=== PATIENT | male | born 1960 | race Caucasian/White ===

== ENCOUNTER 2019-09-17 19:48 | Inpatient (IN) | payer OTHER ==
[~2019-09-17] VITALS: Ht 175.3 cm; Wt 63.5 kg
[~2019-09-17 19:48] MED LIST: AMOCLA875 PO; Amoxicillin500 MG PO
[2019-09-17 20:29] LABS: BASOPHILS ABSOLUTE AUTO 0.04 K/mm3 (0.00-0.23); BASOPHILS PERCENT AUTO 0 % (0-2); EOSINOPHILS ABSOLUTE AUTO 0.01 K/mm3 (0.00-0.68); EOSINOPHILS PERCENT AUTO 0 % (0-6); Hematocrit 49.1 % (37.0-53.0); Hemoglobin 16.3 g/dL (13.5-17.5); IMMATURE GRAN ABSOLUTE AUTO 0.05 K/mm3 (0.00-0.10); IMMATURE GRAN PERCENT AUTO 0 % (0-1); LYMPHOCYTES ABSOLUTE AUTO 1.07 K/mm3 (0.84-5.20); LYMPHOCYTES PERCENT AUTO 6 % (21-46); MONOCYTES ABSOLUTE AUTO 0.32 K/mm3 (0.16-1.47); MONOCYTES PERCENT AUTO 2 % (4-13); Mean Corpuscular HGB Conc 33.2 g/dL (31.5-36.5); Mean Corpuscular Volume 90 fL (80-100); Mean Platelet Volume 8.4 fL (9.1-12.4); NEUTROPHILS ABSOLUTE AUTO 16.04 K/mm3 (1.96-9.15); NEUTROPHILS PERCENT AUTO 92 % (41-73); Platelet Count 605 K/mm3 (150-400); RDW Coefficient Variation 13.1 % (11.7-14.2); RDW Standard Deviation 43.8 fL (35.1-46.3); Red Blood Cell Count 5.44 M/mm3 (4.30-5.90); White Blood Cell Count 17.53 K/mm3 (4.00-11.30)
[2019-09-17 20:46] LABS: Alanine Aminotransfer (ALT/SGP 36 U/L (12-78); Alk Phos 67 U/L (50-136); Anion Gap 7 mmol/L (6-16); Aspartate Aminotrans (AST/SGOT 29 U/L (12-37); Bilirubin, Total 0.5 mg/dL (0.1-1.0); Blood Urea Nitrogen 23 mg/dL (8-24); Bun/Creatinine Ratio 24.8 (12.0-20.0); CO2, Blood 29 mmol/L (21-32); Calcium, Blood 9.1 mg/dL (8.5-10.1); Chloride, Blood 102 mmol/L (98-108); Creatinine, Blood 0.93 mg/dL (0.60-1.20); Globulin, Blood 4.1 g/dL (2.2-4.0); Glomerular Filtration Rate >60 (60-); Glucose, Blood 120 mg/dL (70-99); Potassium, Blood 3.6 mmol/L (3.5-5.5); Sodium, Blood 138 mmol/L (136-145); Total Protein, Blood 8.1 g/dL (6.4-8.2)
--- NOTE | 2019-09-18 02:02 | NUR ---
PT ARRIVES FROM OR VIA GURNEY TO ICU ROOM 9. PT FULLY AWAKE AND RESTLESS. LS CLEAR ON NON-REBREATHER MASK SWITCED TO N/C 2L. SATS 98-100%. PT MEDICATED WTIH FENTANYL 50 mcg PER ANESTHESIA ORDERS. PT STATED, "YES, A LITTLE BETTER" FOR PAIN RELIEF. PT WITH ABDOMINAL DRESSING AND HAN DRAIN TO MID ABDOMEN. PT CURRENTLY A+O TO PERSON, PLACE, MONTH, AND DAY OF THE WEEK. PT STATED NAUSEA BETTER AND PAIN IS NOW 5/10. WILL CALL SURGICAL FLOOR RN FOR PT TRANSFERRING TO ROOM 226.
--- NOTE | 2019-09-18 02:41 | NUR ---
DR. GUNN NOTIFIED: RE: PT'S HTN. DR. GUNN STATED WILL PLACE ORDER FOR SYS >180. HAN DRAIN C/ TOTAL OF 150cc SER/NIELSEN FLUID OUT.
[2019-09-18 02:43] LABS: BASOPHILS ABSOLUTE AUTO 0.02 K/mm3 (0.00-0.23); BASOPHILS PERCENT AUTO 0 % (0-2); EOSINOPHILS PERCENT AUTO 0 % (0-6); Hematocrit 44.1 % (37.0-53.0); Hemoglobin 14.6 g/dL (13.5-17.5); IMMATURE GRAN ABSOLUTE AUTO 0.05 K/mm3 (0.00-0.10); IMMATURE GRAN PERCENT AUTO 0 % (0-1); LYMPHOCYTES ABSOLUTE AUTO 0.35 K/mm3 (0.84-5.20); LYMPHOCYTES PERCENT AUTO 2 % (21-46); MONOCYTES ABSOLUTE AUTO 0.36 K/mm3 (0.16-1.47); MONOCYTES PERCENT AUTO 2 % (4-13); Mean Corpuscular HGB 30.4 pg (26.0-34.0); Mean Corpuscular HGB Conc 33.1 g/dL (31.5-36.5); Mean Corpuscular Volume 92 fL (80-100); Mean Platelet Volume 8.4 fL (9.1-12.4); NEUTROPHILS ABSOLUTE AUTO 19.08 K/mm3 (1.96-9.15); NEUTROPHILS PERCENT AUTO 96 % (41-73); Platelet Count 510 K/mm3 (150-400); RDW Coefficient Variation 13.2 % (11.7-14.2); RDW Standard Deviation 44.8 fL (35.1-46.3); White Blood Cell Count 19.86 K/mm3 (4.00-11.30)
[2019-09-18 02:58] LABS: Anion Gap 5 mmol/L (6-16); Blood Urea Nitrogen 25 mg/dL (8-24); Bun/Creatinine Ratio 25.1 (12.0-20.0); CO2, Blood 26 mmol/L (21-32); Chloride, Blood 107 mmol/L (98-108); Glomerular Filtration Rate >60 (60-); Glucose, Blood 143 mg/dL (70-99); Potassium, Blood 3.8 mmol/L (3.5-5.5); Sodium, Blood 138 mmol/L (136-145)
--- NOTE | 2019-09-18 07:44 | NUR ---
SUMMARY PT ADMITTED POSTOP FROM ICU RECOVERY. REQUIRED DILAUDID TOTAL OF 2 MG IV FOR PAIN CONTROL. PT SLEPT AFTER.BARBOSA WITH CLEAR YELLOW SURGICAL SITE D/I WITH GÉNESIS AND GAUZE WITH HAN.
--- NOTE | 2019-09-18 16:46 | NUR ---
SHIFT SUMMARY PAIN HAS BEEN MANAGED WITH IV PAIN MEDICATION. PT HAS BEEN OOB TO THE CHAIR X1 TODAY, TOLERATED WELL. PT DENIES PASSING FLATUS. VSS. WILL MONITOR UNTIL REPORT TO ONCOMING RN.
[2019-09-19 06:24] LABS: BASOPHILS ABSOLUTE AUTO 0.03 K/mm3 (0.00-0.23); BASOPHILS PERCENT AUTO 0 % (0-2); EOSINOPHILS ABSOLUTE AUTO 0.03 K/mm3 (0.00-0.68); EOSINOPHILS PERCENT AUTO 0 % (0-6); Hematocrit 37.7 % (37.0-53.0); Hemoglobin 12.5 g/dL (13.5-17.5); IMMATURE GRAN ABSOLUTE AUTO 0.07 K/mm3 (0.00-0.10); IMMATURE GRAN PERCENT AUTO 1 % (0-1); LYMPHOCYTES ABSOLUTE AUTO 1.17 K/mm3 (0.84-5.20); LYMPHOCYTES PERCENT AUTO 8 % (21-46); MONOCYTES ABSOLUTE AUTO 0.58 K/mm3 (0.16-1.47); MONOCYTES PERCENT AUTO 4 % (4-13); Mean Corpuscular HGB 29.7 pg (26.0-34.0); Mean Corpuscular HGB Conc 33.2 g/dL (31.5-36.5); Mean Corpuscular Volume 90 fL (80-100); Mean Platelet Volume 8.8 fL (9.1-12.4); NEUTROPHILS ABSOLUTE AUTO 12.45 K/mm3 (1.96-9.15); NEUTROPHILS PERCENT AUTO 87 % (41-73); Platelet Count 403 K/mm3 (150-400); RDW Coefficient Variation 13.3 % (11.7-14.2); RDW Standard Deviation 43.6 fL (35.1-46.3); Red Blood Cell Count 4.21 M/mm3 (4.30-5.90); White Blood Cell Count 14.33 K/mm3 (4.00-11.30)
--- NOTE | 2019-09-19 06:32 | NUR ---
POD 1 S/P EXP LAP W/ULCER OVERSEW. PT VSS T/O NIGHT. DRESSING CDI W/GOOD SEAL. HAN PUTTING OUT SS DRNG. PAIN MGD PER EMAR W/REP RELIEF. PT NPO PER ORDERS, BT HYPO, NO FLATUS YET. PT HAD NO C/O N/V. PPN AND ABX CONT PER ORDERS. PT USING CALL LIGHT FOR ASSISTANCE, WILL CONT TO MONITOR UNTIL REP GIVEN TO ONCOMING RN.
[2019-09-19 06:47] LABS: Alanine Aminotransfer (ALT/SGP 37 U/L (12-78); Albumin, Blood 2.5 g/dL (3.4-5.0); Alk Phos 40 U/L (50-136); Anion Gap 3 mmol/L (6-16); Aspartate Aminotrans (AST/SGOT 28 U/L (12-37); Bilirubin, Total 0.6 mg/dL (0.1-1.0); Blood Urea Nitrogen 23 mg/dL (8-24); Bun/Creatinine Ratio 31.5 (12.0-20.0); CO2, Blood 32 mmol/L (21-32); Calcium, Blood 8.4 mg/dL (8.5-10.1); Chloride, Blood 103 mmol/L (98-108); Creatinine, Blood 0.73 mg/dL (0.60-1.20); Glomerular Filtration Rate >60 (60-); Glucose, Blood 89 mg/dL (70-99); Phosphorus, Blood 1.5 mg/dL (2.5-4.9); Sodium, Blood 138 mmol/L (136-145)
[2019-09-19 06:49] LABS: Albumin/Globulin Ratio 0.7 (0.8-1.8); Globulin, Blood 3.5 g/dL (2.2-4.0)
--- NOTE | 2019-09-19 10:52 | NUR ---
ASSUMED CARE ASSUMED CARE FROM ORLIN BRAND AT THIS TIME
--- NOTE | 2019-09-19 19:45 | NUR ---
SHIFT SUMMARY POD 1 EXP LAP W/ULCER OVERSEW. PT A&O THROUGHOUT SHIFT WITH VSS AND NO ACUTE CHANGES. DRESSING C/D/I. HAN IN PLACE AND DRAINING SS FLUID. PAIN MANAGED WITH IV MEDICATIONS PER EMAR AND REPOSITIONING. BARBOSA REMOVED AND PT ABLE TO VOID. AMBULATED IN HALLWAY, UP IN CHAIR AND ON SIDE OF BED WITH ONE ASSIST. PPN AND ABX CONTINUED PER ORDERS. CALL LIGHT WITHIN REACH AND PT IS ABLE TO USE APPRIOPRIATELY.
[2019-09-20 05:37] LABS: Magnesium, Blood 1.8 mg/dL (1.6-2.4)
[2019-09-20 05:38] LABS: Anion Gap 4 mmol/L (6-16); Blood Urea Nitrogen 17 mg/dL (8-24); Bun/Creatinine Ratio 23.1 (12.0-20.0); CO2, Blood 32 mmol/L (21-32); Calcium, Blood 8.5 mg/dL (8.5-10.1); Chloride, Blood 97 mmol/L (98-108); Creatinine, Blood 0.74 mg/dL (0.60-1.20); Glomerular Filtration Rate >60 (60-); Glucose, Blood 83 mg/dL (70-99); Phosphorus, Blood 2.6 mg/dL (2.5-4.9); Sodium, Blood 133 mmol/L (136-145); Triglycerides 68 mg/dL (30-160)
--- NOTE | 2019-09-20 06:05 | NUR ---
POD 2 S/P EXP LAP W/ULCER REPAIR. PT VSS T/O NIGHT; DRESSING CDI W/GOOD SEAL TO GÉNESIS VAC. HAN PUTTING OUT SS DRNG. PAIN MGD W/1MG IV DILAUDID W/REP RELIEF. PT REMI SM AMT CLEAR LIQ, NO C/O N/V, REP NO FLATUS YET. PT VOIDING URINE W/O DIFFICULTY. PPN AND ABX CONT PER ORDERS. PT USING CALL LIGHT FOR ASSISTANCE, WILL CONT TO MONITOR UNTIL REP GIVEN TO ONCOMING RN.
--- NOTE | 2019-09-20 16:57 | NUR ---
SHIFT SUMMARY NO ACUTE CHANGES THIS SHIFT. PT RECEIVING 1MG IV DILAUDID FOR PAIN PRN. GÉNESIS WOUND VAC TO ABD REMAINS COMPRESSED AND CDI. HAN WITH 80CC OUT OF SANGUINOUS. PT DENIES PASSING GAS YET AND BTS ARE HYPOACTIVE BUT PRESENT. PT SLOWLY REMI CLEAR LIQ DIET. PPN STILL INFUSING PER ORDERS. USING URINAL TO VOID. ENCOURAGING AMBULATION. 1 SBA WHEN OOB. CALL LIGHT WITHIN REACH.
[2019-09-21 03:36] LABS: Anion Gap 6 mmol/L (6-16); Blood Urea Nitrogen 14 mg/dL (8-24); Bun/Creatinine Ratio 22.6 (12.0-20.0); CO2, Blood 29 mmol/L (21-32); Calcium, Blood 8.5 mg/dL (8.5-10.1); Chloride, Blood 99 mmol/L (98-108); Creatinine, Blood 0.62 mg/dL (0.60-1.20); Glomerular Filtration Rate >60 (60-); Glucose, Blood 110 mg/dL (70-99); Magnesium, Blood 1.9 mg/dL (1.6-2.4); Phosphorus, Blood 3.2 mg/dL (2.5-4.9); Potassium, Blood 3.5 mmol/L (3.5-5.5); Sodium, Blood 134 mmol/L (136-145)
--- NOTE | 2019-09-21 05:38 | NUR ---
SHIFT SUMMARY POD#3 DUODENAL ULCER REPAIR. PT RESTED WELL T/O NIGHT. AAOX4. DISCOMFORT CONTROLLED WITH 1MG IV DILAUDID Q2-3P. NO NAUSEA/EMESIS T/O NIGHT. ABD INCISION WITH GÉNESIS DRESSING C/D/I. HAN SECURE WITH 45cc SS DRAINAGE OUT. PPN INFUSING PER ORDERS. ELEVATED TEMPERATURE NOTED, ENCOURAGED PT TO DEEP BREATHE + INCENTIVE SPIROMETRY. PT RESTING WELL AT THIS TIME, NADN, WITH CALL LIGHT IN REACH.
--- NOTE | 2019-09-21 16:32 | NUR ---
SHIFT SUMMARY PT HAS STRUGGLED WITH NAUSEA TODAY. MEDICATING WITH ZOFRAN AND REGLAN. NO EMESIS. PT DENIES PASSING FLATUS. BTS X4 QUAD ARE HYPOACTIVE BUT PRESENT. VERY SLOW SIPS OF CLEAR LIQS. AMBULATED HALLWAY AND SITTING IN CHAIR WITH ENCOURAGEMENT FROM STAFF. PPN + ABX INFUSING PER ORDERS. 1MG IV DILAUDID FOR ABD PAIN PRN. USES CALL LIGHT APPROPRIATELY.
--- NOTE | 2019-09-22 06:27 | NUR ---
SHIFT SUMMARY: PT NAUSEATED AND PAINFUL THROUGHOUT SHIFT. GIVEN IV DILAUDID Q2 PER EMAR. PT GIVEN PHENERGAN, REGLAN AND ZOFRAN FOR NAUSEA. NO EMESIS, HOWEVER PT DRY HEAVING AT TIMES. PT GIVEN LACTULOSE YESTERDAY WHICH GAVE HIM SEVERE ABD CRAMPS. PT REFUSED SCHED 2100 DOSE. NO BM. PT ALSO DENIES PASSING FLATUS. PT ENC TO AMBULATE. AMBULATED MAGALLANES X1. ALSO AMBULATED TO BATHROOM SEVERAL TIMES WITH SBA. TOTAL OF 715ML SS DRG FROM HAN DRAIN. ABD DISTENDED WITH HYPOACTIVE BT. MINIMAL PO INTAKE OF CLR LIQ. PPN INFUSING PER EMAR.
--- NOTE | 2019-09-22 10:28 | NUR ---
DR MORALES IN TO SEE PT
[2019-09-22 10:58] LABS: BASOPHILS ABSOLUTE AUTO 0.04 K/mm3 (0.00-0.23); BASOPHILS PERCENT AUTO 1 % (0-2); EOSINOPHILS ABSOLUTE AUTO 0.13 K/mm3 (0.00-0.68); EOSINOPHILS PERCENT AUTO 2 % (0-6); Hematocrit 40.1 % (37.0-53.0); Hemoglobin 13.4 g/dL (13.5-17.5); IMMATURE GRAN ABSOLUTE AUTO 0.03 K/mm3 (0.00-0.10); IMMATURE GRAN PERCENT AUTO 1 % (0-1); LYMPHOCYTES ABSOLUTE AUTO 0.63 K/mm3 (0.84-5.20); LYMPHOCYTES PERCENT AUTO 11 % (21-46); MONOCYTES ABSOLUTE AUTO 0.58 K/mm3 (0.16-1.47); MONOCYTES PERCENT AUTO 10 % (4-13); Mean Corpuscular HGB 30.1 pg (26.0-34.0); Mean Corpuscular HGB Conc 33.4 g/dL (31.5-36.5); Mean Corpuscular Volume 90 fL (80-100); NEUTROPHILS PERCENT AUTO 76 % (41-73); RDW Coefficient Variation 12.8 % (11.7-14.2); RDW Standard Deviation 42.7 fL (35.1-46.3); Red Blood Cell Count 4.45 M/mm3 (4.30-5.90); White Blood Cell Count 5.91 K/mm3 (4.00-11.30)
[2019-09-22 11:15] LABS: Alanine Aminotransfer (ALT/SGP 40 U/L (12-78); Albumin, Blood 2.2 g/dL (3.4-5.0); Albumin/Globulin Ratio 0.6 (0.8-1.8); Alk Phos 44 U/L (50-136); Anion Gap 8 mmol/L (6-16); Aspartate Aminotrans (AST/SGOT 33 U/L (12-37); Bilirubin, Total 0.6 mg/dL (0.1-1.0); Blood Urea Nitrogen 33 mg/dL (8-24); Bun/Creatinine Ratio 28.4 (12.0-20.0); CO2, Blood 26 mmol/L (21-32); Calcium, Blood 8.1 mg/dL (8.5-10.1); Chloride, Blood 96 mmol/L (98-108); Creatinine, Blood 1.16 mg/dL (0.60-1.20); Glomerular Filtration Rate >60 (60-); Glucose, Blood 193 mg/dL (70-99); Mean Platelet Volume 9.7 fL (9.1-12.4); Potassium, Blood 4.3 mmol/L (3.5-5.5); Sodium, Blood 130 mmol/L (136-145); Total Protein, Blood 6.2 g/dL (6.4-8.2)
[2019-09-22 11:39] LABS: Platelet Count 298 K/mm3 (150-400)
--- NOTE | 2019-09-22 17:28 | NUR ---
SUMMARY PT HAS BEEN NAUSEATED AND PAINFUL T/O SHIFT; MEDICATED PER ORDERS FOR BOTH NAUSE AND PAIN. HAD 300 ML EMESIS. AMBULATED ONCE DURING SHIFT IN MAGALLANES, DECLINED FURTHER AMBULATION, STATING FELT TOO SICK. RESTING IN BED W/EYES CLOSED. CALL LIGHT IN REACH.
--- NOTE | 2019-09-22 22:23 | NUR ---
N/V: PT W/ONGOING N/V DESPITE RECEIVING NAUSEA MEDS ORDERED. PT W/>1100 ML GREEN EMESIS OUT. CALL PLACED TO DR LUZ. NEW ORDER FOR NGT W/ABD XRAY AFTER.
--- NOTE | 2019-09-22 23:28 | NUR ---
NGT: NGT INSTERTED W/IMMEDIATE RETURN OF LIQ GREEN DRNG. TUBE PLACED TO XYPHPOID PROCESS PER ORDERS. XRAY IN TO VERIFY PLACEMENT. PT EDUCATED ON PROCEDURE, REMI WELL.
[2019-09-23 04:43] LABS: Hematocrit 39.3 % (37.0-53.0); Hemoglobin 13.3 g/dL (13.5-17.5); Mean Corpuscular HGB 29.5 pg (26.0-34.0); Mean Corpuscular HGB Conc 33.8 g/dL (31.5-36.5); Mean Platelet Volume 9.4 fL (9.1-12.4); Platelet Count 455 K/mm3 (150-400); RDW Coefficient Variation 12.7 % (11.7-14.2); RDW Standard Deviation 40.6 fL (35.1-46.3); Red Blood Cell Count 4.51 M/mm3 (4.30-5.90)
[2019-09-23 04:54] LABS: Mean Corpuscular Volume 87 fL (80-100)
[2019-09-23 04:59] LABS: Anion Gap 7 mmol/L (6-16); Blood Urea Nitrogen 28 mg/dL (8-24); Bun/Creatinine Ratio 31.3 (12.0-20.0); CO2, Blood 31 mmol/L (21-32); Calcium, Blood 8.6 mg/dL (8.5-10.1); Chloride, Blood 94 mmol/L (98-108); Glomerular Filtration Rate >60 (60-); Glucose, Blood 137 mg/dL (70-99); Phosphorus, Blood 2.8 mg/dL (2.5-4.9); Potassium, Blood 4.2 mmol/L (3.5-5.5); Sodium, Blood 132 mmol/L (136-145)
[2019-09-23 05:05] LABS: BAND PERCENT MAN 34 % (0-8); BASOPHILS PERCENT MAN 0 % (0-2); EOSINOPHILS ABSOLUTE MAN 0.13 K/mm3 (0.00-0.68); EOSINOPHILS PERCENT MAN 3 % (0-6); LYMPHOCYTES ABSOLUTE MAN 0.79 K/mm3 (0.84-5.20); LYMPHOCYTES PERCENT MAN 18 % (21-46); METAMYELOCYTE ABSOLUTE MAN 0.04 K/mm3 (0.00-0.00); METAMYELOCYTE PERCENT MAN 1 % (0-0); MONOCYTES ABSOLUTE MAN 0.35 K/mm3 (0.16-1.47); MONOCYTES PERCENT MAN 8 % (4-13); MYELOCYTE ABSOLUTE MAN 0.04 K/mm3 (0.00-0.00); MYELOCYTE PERCENT MAN 1 % (0-0); NEUTROPHILS ABSOLUTE MAN 3.03 K/mm3 (1.96-9.15); SEG NEUTROPHILS PERCENT MAN 35 % (41-73); TOTAL CELLS COUNTED 100
--- NOTE | 2019-09-23 07:24 | NUR ---
POD 5 S/P EXP LAP W/ULCER PATCH. PT VSS T/O NIGHT. GÉNESIS DRESSING INTACT W/GOOD SEAL. HAN PUTTING OUT LARGE AMT SS DRNG. PT REP LESS NAUSEA AFTER NGT PLACED. NGT DRAINED APPX 1000 ML GREEN/BROWN DRNG. ABD REMAINS DISTENDED, BT SPARSE, PT REP PASSING SM AMT GAS. NEW ORDER FOR IV PAIN MED REC R/T PT N/V. PT VOIDING URINE W/O DIFFICULTY. PPN AND ABX CONT PER ORDERS. PT USING CALL LIGHT FOR ASSISTANCE, REP GIVEN TO DAY RN.
--- NOTE | 2019-09-23 17:39 | NUR ---
SUMMARY NO ACUTE CHANGES T/O SHIFT. PT SLEPT OFF AND ON T/O DAY. AWAKENS EASILY TO VOICE. DECLINED AMBULATING. MEDICATED PER ORDERS T/O DAY FOR PAIN AND NAUSEA. NG DRAINING DARK BROWNISH GREEN FLUID. HAN DRAINING SS FLUID. PT REPORTS PASSING "A LITTLE" FLATUS BUT NO BM. BT HYPOACTIVE. CALL LIGHT IN REACH.
--- NOTE | 2019-09-24 04:01 | NUR ---
SHIFT SUMMARY POD 6 PATIENT AAOX4, VSS. REPORTS NAUSEA AND FREQUENT PAIN. MEDICATED PER EMAR WITH DILAUDID AND ZOFRAN PATIENT STATES RELIEF. NG TUBE PATENT AND DRAINING GREEN FLUID. PATIENT REMINDED TO NOT UNDO TAPE OF NG TUBE MULTIPLE TIMES DURING SHIFT. PATIENT REPOSITIONING SELF IN BED. HAS NOT BEEN UP TO AMBULATE BUT HAS SAT ON EDGE OF BED.
[2019-09-24 05:05] LABS: Anion Gap 6 mmol/L (6-16); Blood Urea Nitrogen 26 mg/dL (8-24); CO2, Blood 30 mmol/L (21-32); Calcium, Blood 8.4 mg/dL (8.5-10.1); Chloride, Blood 96 mmol/L (98-108); Creatinine, Blood 0.87 mg/dL (0.60-1.20); Glomerular Filtration Rate >60 (60-); Glucose, Blood 134 mg/dL (70-99); Magnesium, Blood 2.1 mg/dL (1.6-2.4); Phosphorus, Blood 2.9 mg/dL (2.5-4.9); Potassium, Blood 3.9 mmol/L (3.5-5.5); Sodium, Blood 132 mmol/L (136-145)
--- NOTE | 2019-09-24 18:43 | NUR ---
SHIFT SUMMARY PT HAS BEEN IN UP TO CHAIR TODAY. A/O X4. PT HAD PICC LINE PLACED AND IS TOLERATING TPN. PAIN MANAGED WITH MED PER ORDERS. ASSISTED WTIH ADL'S PRN. NG TUBE IN PLACE, DRAINING.
--- NOTE | 2019-09-25 05:03 | NUR ---
SHIFT SUMMARY PT POD#7. AAOX4. DISCOMFORT CONTROLLED WITH 1MG IV DILAUDID Q3P. NO NAUSEA/EMESIS. ABD INCISION WITH GÉNESIS C/D/I. HAN SECURE WITH 5cc SS DRAINAGE. TPN INFUSING THROUGH NEW PICC PLACED 09/24. Q6H CHEMBG PER NEW TPN INFUSION ORDERS. NGT WITH 600cc DARK GREEN OUT. PT RESTED WELL T/O NIGHT AND UP TO CHAIR THIS AM, SBA TO AMBULATE. CONTINUE TO ENCOURAGE DEEP BREATHING + AMBULATION TODAY TOLERATED. PT RESTING IN CHAIR AT THIS TIME WITH CALL LIGHT IN REACH.
--- NOTE | 2019-09-25 17:21 | NUR ---
SHIFT SUMMARY PT A&OX4, VSS, RA, NPO, TPN @ 85 MLS/HR, CBGS ARE WNL; NEW ORDER QAM ONLY. PICC LINE FLUSHES AND INFUSES WELL. POD7 EXP LAP, MIDLINE GÉNESIS, HAN W/SMALL AMT SS DRAINAGE, KPAD ON ABD. NG TUBE WITH 300 MLS DK GREEN OUT. PAIN MANAGED WITH 1 MG DILAUDID Q3, GIVEN 3X THIS SHIFT. AMBULATING WITH FWW & GB WITH 1 MOD ASSIST IN HALLWAYS; UP TO CHAIR T/O SHIFT. VOIDING WELL USING URINAL. TCDB & I.S. EDU & ENC. WILL REPORT TO ONCOMING BRETT RN.
--- NOTE | 2019-09-26 05:36 | NUR ---
SHIFT SUMMARY: PT S/P EXP LAP WITH POSTOP ILEUS. NG TUBE IN PLACE WITH A TOTAL OF 200 ML GREENISH OUTPUT. HAN WITH A TOTAL OF 15ML SS OUTPUT. GÉNESIS WOUND VAC CDI. PT REPORTS PASSING A SMALL AMOUNT OF FLATUS. NO BM. HYPOACTIVE BT WITH MILD-MODERATE DISTENDED ABD. PT OUT OF BED WITH ONE MINIMAL ASSIST. PAIN MANAGED WITH 1MG DIALUDID Q3 PER EMAR.
--- NOTE | 2019-09-26 11:37 | NUR ---
DIETITION IN TO SEE PT DIETITION TO SEE PT AT 1130 TODAY; OKAY TO D/C CBG. PT UP IN CHAIR WITH CALL LIGHT WITHIN REACH.
--- NOTE | 2019-09-26 17:33 | NUR ---
SHIFT SUMMARY PT A&OX4, VSS, RA, VOIDING WELL, NPO, TPN @ 85 MLS/HR. POD8 EXP LAP, MIDLINE GÉNESIS DRY & INTACT, HAN 15 MLS THIS SHIFT. NG TUBE 200 MLS OUT, CLAMPED @ 1230. PT REP PASSING SMALL AMT FLATUS. AMB W/FWW & GB TO CHAIR AND IN HALLWAY WITH MIN ASSIST. UP TO CHAIR T/O SHIFT, KPAD FOR COMFORT. WILL REPORT TO ONCOMING NOC ORLIN.
[2019-09-27 03:42] LABS: BASOPHILS ABSOLUTE AUTO 0.05 K/mm3 (0.00-0.23); BASOPHILS PERCENT AUTO 0 % (0-2); EOSINOPHILS ABSOLUTE AUTO 0.15 K/mm3 (0.00-0.68); EOSINOPHILS PERCENT AUTO 1 % (0-6); Hematocrit 35.7 % (37.0-53.0); Hemoglobin 11.7 g/dL (13.5-17.5); IMMATURE GRAN ABSOLUTE AUTO 0.26 K/mm3 (0.00-0.10); IMMATURE GRAN PERCENT AUTO 2 % (0-1); LYMPHOCYTES PERCENT AUTO 16 % (21-46); MONOCYTES ABSOLUTE AUTO 0.95 K/mm3 (0.16-1.47); MONOCYTES PERCENT AUTO 8 % (4-13); Mean Corpuscular HGB 29.5 pg (26.0-34.0); Mean Corpuscular HGB Conc 32.8 g/dL (31.5-36.5); Mean Platelet Volume 9.5 fL (9.1-12.4); NEUTROPHILS ABSOLUTE AUTO 9.29 K/mm3 (1.96-9.15); NEUTROPHILS PERCENT AUTO 73 % (41-73); Platelet Count 778 K/mm3 (150-400); RDW Coefficient Variation 12.7 % (11.7-14.2); RDW Standard Deviation 42.3 fL (35.1-46.3); Red Blood Cell Count 3.96 M/mm3 (4.30-5.90)
[2019-09-27 03:43] LABS: Mean Corpuscular Volume 90 fL (80-100)
[2019-09-27 03:59] LABS: Anion Gap 5 mmol/L (6-16); Blood Urea Nitrogen 23 mg/dL (8-24); Bun/Creatinine Ratio 40.6 (12.0-20.0); CO2, Blood 34 mmol/L (21-32); Calcium, Blood 8.3 mg/dL (8.5-10.1); Chloride, Blood 100 mmol/L (98-108); Creatinine, Blood 0.57 mg/dL (0.60-1.20); Glomerular Filtration Rate >60 (60-); Glucose, Blood 129 mg/dL (70-99); Potassium, Blood 3.2 mmol/L (3.5-5.5); Sodium, Blood 139 mmol/L (136-145); Triglycerides 75 mg/dL (30-160)
--- NOTE | 2019-09-27 06:13 | NUR ---
SHIFT SUMMARY: MAX IS POD9. HE HAS COMPLAINED OF 8/10 PAIN FOR WHICH HE STATES IV DILAUDID IS EFFECTIVE. HE ALSO STATES THAT THE HEAT PAD AND REPOSITIONING ARE HELPFUL. HE IS A&OX4. HIS NG TUBE HAS REMAINED CLAMPED AND HE DENEIS ANY N/V. HE IS USING THE URINAL WITHOUT DIFFICULTIES. HE USE THE CALL LIGHT APPROPRIATELY THIS SHIFT, COMPLYING WITH THE NURSING STAFF REQUEST TO CALL BEFORE TRANSFERING. TPN RUNNING, PICC PATENT. HE IS UP IN THE CHAIR WITH THE CALL LIGHT IN REACH. HE STATES HE HAS NOT PASSED GAS LATELY AND DENIES ANY BOWEL MOVEMENTS.
--- NOTE | 2019-09-27 18:31 | NUR ---
SHIFT SUMMARY PAIN HAS BEEN MANAGED WITH IV PAIN MEDICATION. PT REPORTS HE HAS BEEN PASSING FLATUS, BOWEL SOUNDS REMAIN HYPOACTIVE. PT IS TOLERATING SMALL AMOUNTS OF CLEAR LIQUIDS. PT HAS BEEN ENCOURAGED TO AMBULATE AND IS A SBA. WILL CONTINUE TO MONITOR.
--- NOTE | 2019-09-28 03:21 | NUR ---
Pt A&Ox4. VSS. NGT Clamped. TPN infusing. Nicholas clear liquid diet. Patient reports he is passing gas. Bowel sounds Hypoactive. Mild distention. Patient reports gas pains. Ambulating to bathroom. Voiding.
[2019-09-28 09:16] LABS: Anion Gap 5 mmol/L (6-16); Blood Urea Nitrogen 19 mg/dL (8-24); Bun/Creatinine Ratio 34.6 (12.0-20.0); CO2, Blood 31 mmol/L (21-32); Calcium, Blood 8.3 mg/dL (8.5-10.1); Chloride, Blood 100 mmol/L (98-108); Creatinine, Blood 0.55 mg/dL (0.60-1.20); Glomerular Filtration Rate >60 (60-); Glucose, Blood 116 mg/dL (70-99); Potassium, Blood 3.5 mmol/L (3.5-5.5); Sodium, Blood 136 mmol/L (136-145)
--- NOTE | 2019-09-28 16:57 | NUR ---
NG TUBE REMOVED. BOWEL SOUNDS HAVE BEEN MORE ACTIVE THIS SHIFT AND PT REPORTS PASSING FLATUS. WILL CONTINUE TO MONITOR.
--- NOTE | 2019-09-29 01:41 | NUR ---
Patient A&Ox4. VSS. Bowel sounds hypoactive. Patient reports passing gas. Tolerating Full liquid diet. Ambulating to bathroom with SBA. TPN infusing. Complaints of abd pain, medicated per orders. Voiding.
[2019-09-29] MEDS ORDERED: OXYC5 PO (10:52)
--- NOTE | 2019-09-29 11:25 | NUR ---
DISCHARGE PT EDUCATED ON AND RECEIVED PRINTED DC INSTRUCTIONS AND VERB AN UNDERSTANDING. PICC LINE BEING DC'D BY FISHING FLOATS ASSEMBLER. HARD RX FOR OXYCODONE GIVEN TO PT. PT WAITING FOR TRANSPORTATION HOME. PT GATHERING ALL PERSONAL BELONGINGS.
== END 2019-09-29 12:59 | disposition home or self-care (01) | DRG 853 ==
LOC: ER 19:48 → SURS 23:17 → ICUW 23:17 → SURS 09-18 00:02 → ICUW 09-18 01:40 → SURS 09-18 02:59
PROVIDERS: Hospitalist; Internal Medicine; Physician Assistant; ADMIT Surgery
PROC: 0DU907Z Supplement Duodenum with Autologous Tissue Substitute, Open Approach (ICD-10-PCS; principal; 2019-09-18)
PROC: 02HV33Z Insertion of Infusion Device into Superior Vena Cava, Percutaneous Approach (ICD-10-PCS; 2019-09-24)
PROC: 3E0436Z Introduction of Nutritional Substance into Central Vein, Percutaneous Approach (ICD-10-PCS; 2019-09-24)
DX: A41.9 Sepsis, unspecified organism (principal); K26.1 Acute duodenal ulcer with perforation; R64 Cachexia; K91.89 Other postprocedural complications and disorders of digestive system; K56.7 Ileus, unspecified; E46 Unspecified protein-calorie malnutrition; R65.20 Severe sepsis without septic shock; F15.10 Other stimulant abuse, uncomplicated; F17.210 Nicotine dependence, cigarettes, uncomplicated; K59.00 Constipation, unspecified; I10 Essential (primary) hypertension; E83.39 Other disorders of phosphorus metabolism; B19.20 Unspecified viral hepatitis C without hepatic coma
CPT/HCPCS: 36415; 36569; 74018; 74177; 80048; 80053; 82947; 83605; 83690; 83735; 84100; 84478; 85025; 87040; 93005; 93010; 96365-59; 96375; 97110; 97116; 97161; 97530; 99285-25; C1751; C9113; J0330; J0610; J1100; J1170; J1200; J1650; J2370; J2405; J2543; J2550; J2704; J2710; J2765; J3010; J3475; J7030; J7060; J7120; J7131; Q9967

== ENCOUNTER 2022-01-30 17:50 | Inpatient (IN) | payer OTHER ==
[~2022-01-30] VITALS: Ht 172.7 cm; Wt 50.5 kg
[~2022-01-30 17:50] MED LIST changes: +OXYC5 PO
[2022-01-30 18:29] LABS: BASOPHILS ABSOLUTE AUTO 0.05 K/mm3 (0.00-0.23); BASOPHILS PERCENT AUTO 1 % (0-2); EOSINOPHILS ABSOLUTE AUTO 0.22 K/mm3 (0.00-0.68); EOSINOPHILS PERCENT AUTO 2 % (0-6); Hematocrit 39.5 % (37.0-53.0); Hemoglobin 13.2 g/dL (13.5-17.5); IMMATURE GRAN ABSOLUTE AUTO 0.04 K/mm3 (0.00-0.10); IMMATURE GRAN PERCENT AUTO 0 % (0-1); LYMPHOCYTES ABSOLUTE AUTO 1.68 K/mm3 (0.84-5.20); LYMPHOCYTES PERCENT AUTO 16 % (21-46); MONOCYTES ABSOLUTE AUTO 0.66 K/mm3 (0.16-1.47); MONOCYTES PERCENT AUTO 6 % (4-13); Mean Corpuscular HGB 28.8 pg (26.0-34.0); Mean Corpuscular HGB Conc 33.4 g/dL (31.5-36.5); Mean Corpuscular Volume 86 fL (80-100); Mean Platelet Volume 8.5 fL (9.1-12.4); NEUTROPHILS ABSOLUTE AUTO 7.81 K/mm3 (1.96-9.15); NEUTROPHILS PERCENT AUTO 75 % (41-73); Platelet Count 528 K/mm3 (150-400); RDW Coefficient Variation 13.7 % (11.7-14.2); RDW Standard Deviation 42.6 fL (35.1-46.3); Red Blood Cell Count 4.59 M/mm3 (4.30-5.90); White Blood Cell Count 10.46 K/mm3 (4.00-11.30)
[2022-01-30 18:52] LABS: Alanine Aminotransfer (ALT/SGP 21 U/L (12-78); Albumin, Blood 3.6 g/dL (3.4-5.0); Albumin/Globulin Ratio 1.1 (0.8-1.8); Alk Phos 67 U/L (50-136); Anion Gap 1 mmol/L (6-16); Aspartate Aminotrans (AST/SGOT 13 U/L (12-37); Bilirubin, Total 0.3 mg/dL (0.1-1.0); Blood Urea Nitrogen 20 mg/dL (8-24); CO2, Blood 30 mmol/L (21-32); Calcium, Blood 8.9 mg/dL (8.5-10.1); Chloride, Blood 104 mmol/L (98-108); Creatinine, Blood 0.77 mg/dL (0.60-1.20); Globulin, Blood 3.4 g/dL (2.2-4.0); Glomerular Filtration Rate >60 (60-); Glucose, Blood 124 mg/dL (70-99); Potassium, Blood 4.2 mmol/L (3.5-5.5); Sodium, Blood 135 mmol/L (136-145)
[2022-01-30] MEDS ORDERED: IBUP800 PO (18:52)
[2022-01-30 19:21] LABS: Influenza A, PCR NEGATIVE (NEGATIVE); Influenza B, PCR NEGATIVE (NEGATIVE); Resp Syncytial Virus, PCR NEGATIVE (NEGATIVE); SARS-Cov-2 (COVID-19) PCR, MMC NEGATIVE (NEGATIVE)
--- NOTE | 2022-01-31 00:09 | NUR ---
TELEPHONE ORDER RECEIVED FROM DR. Shay EUGENE TO GIVE LABETALOL 10 MG IV Q 4 HRS PRN FOR SBP ABOVE 160, TELEMETRY MONITORING, MELATONIN 5 MG PO NOW, NPO AFTER MIDNIGHT, LR 75 MLS/HR,TORB.
--- NOTE | 2022-01-31 01:46 | NUR ---
ADMITTED THIS PT. FROM ED, AOX4, SMALL SCAB TO TIP OF 2ND L TOE & SCAB TO L NARANJO. NO TEETH UPPER & LOWER. ON BEDREST RELATED TO R HIP FRACTURE. URINATES IN THE URINAL. NPO STARTED AT MIDNIGHT.ON TELE MONITOR AT SINUS RHYTHMN AT 87 PER BINMAN. NO ACUTE CHANGES NOTED, SLEEPING WELL AFTER MELATONIN WAS GIVEN. LR AT 75 MLS/HR. WILL CONTINUE TO MONITOR.
--- NOTE | 2022-01-31 02:49 | NUR ---
R HIP & SURROUNDING AREAS & RLE WIPED WITH CHLORHEXIDINE CHG CLOTH,PT TOLERATED WELL.
--- NOTE | 2022-01-31 16:35 | NUR ---
PT RESTING, DENIES PAIN. ABLE TO USE URINAL W/O ASSISTANCE. PER DR FOSTER, CASE POSTPONED UNTIL TOMORROW. PT INFORMED. OK FOR PAT TO EAT TONIGHT. NPO AFTER MIDNIGHT. CALL TO RNMICHELLE, REPORT GIVEN. PT BACK TO ROOM.
--- NOTE | 2022-01-31 19:18 | NUR ---
SHIFT SUMMARY PT IS A/O X4 AND ABLE TO MAKE NEEDS KNOWN. PT TO GO IN FOR R HIP SURGERY TOMORROW AM. CURRENTLY RESTING COMFORTABLY IN BED WITH HIS CALL LIGHT IN REACH.
[2022-02-01 03:53] LABS: BASOPHILS ABSOLUTE AUTO 0.08 K/mm3 (0.00-0.23); BASOPHILS PERCENT AUTO 1 % (0-2); EOSINOPHILS ABSOLUTE AUTO 0.39 K/mm3 (0.00-0.68); EOSINOPHILS PERCENT AUTO 5 % (0-6); Hematocrit 43.2 % (37.0-53.0); IMMATURE GRAN ABSOLUTE AUTO 0.02 K/mm3 (0.00-0.10); IMMATURE GRAN PERCENT AUTO 0 % (0-1); LYMPHOCYTES ABSOLUTE AUTO 2.13 K/mm3 (0.84-5.20); LYMPHOCYTES PERCENT AUTO 27 % (21-46); MONOCYTES ABSOLUTE AUTO 0.57 K/mm3 (0.16-1.47); MONOCYTES PERCENT AUTO 7 % (4-13); Mean Corpuscular HGB 28.5 pg (26.0-34.0); Mean Corpuscular HGB Conc 32.4 g/dL (31.5-36.5); Mean Corpuscular Volume 88 fL (80-100); Mean Platelet Volume 8.5 fL (9.1-12.4); NEUTROPHILS PERCENT AUTO 59 % (41-73); Platelet Count 536 K/mm3 (150-400); RDW Coefficient Variation 13.6 % (11.7-14.2); RDW Standard Deviation 44.1 fL (35.1-46.3); Red Blood Cell Count 4.91 M/mm3 (4.30-5.90); White Blood Cell Count 7.79 K/mm3 (4.00-11.30)
[2022-02-01 04:14] LABS: Alanine Aminotransfer (ALT/SGP 16 U/L (12-78); Albumin, Blood 2.9 g/dL (3.4-5.0); Albumin/Globulin Ratio 0.8 (0.8-1.8); Alk Phos 61 U/L (50-136); Anion Gap 5 mmol/L (6-16); Aspartate Aminotrans (AST/SGOT 12 U/L (12-37); Bilirubin, Total 0.3 mg/dL (0.1-1.0); Blood Urea Nitrogen 16 mg/dL (8-24); Bun/Creatinine Ratio 20.4 (12.0-20.0); CO2, Blood 30 mmol/L (21-32); Calcium, Blood 8.7 mg/dL (8.5-10.1); Chloride, Blood 102 mmol/L (98-108); Creatinine, Blood 0.79 mg/dL (0.60-1.20); Globulin, Blood 3.6 g/dL (2.2-4.0); Glomerular Filtration Rate >60 (60-); Glucose, Blood 100 mg/dL (70-99); Magnesium, Blood 2.1 mg/dL (1.6-2.4); Phosphorus, Blood 3.7 mg/dL (2.5-4.9); Potassium, Blood 4.3 mmol/L (3.5-5.5); Sodium, Blood 137 mmol/L (136-145); Total Protein, Blood 6.5 g/dL (6.4-8.2)
--- NOTE | 2022-02-01 05:41 | NUR ---
SUMMARY PT PAIN MANAGED WELL T/OUT SHIFT. PT HAS BEEN NPO SINCE MIDNIGHT. PT CURRENTLY SLEEPING IN NO DISTRESS. CALL LIGHT IN REACH.
--- NOTE | 2022-02-01 15:05 | NUR ---
PATIENT WAS TAKEN DOWN TO OR.
--- NOTE | 2022-02-01 15:21 | NUR ---
PT BEEN TO [facility] BY BED WITH ASSIST FROM OTHER RN. History, Chart, Medications and Allergies reviewed before start of procedure.Lungs clear T/O to Auscultation. Patient confirms NPO status and agrees with scheduled surgery. Pre-Op teaching done. Pt verbalizes understanding.
--- NOTE | 2022-02-01 18:46 | NUR ---
SHIFT SUMMARY: POD 0 RIGHT GIANLUCA HIP PATIENT JUST CAME BACK FROM PACU AT 1830 TODAY 02/01/22. PATIENT IS ALERT AND ORIENTED X4. BP IS ELEVATED BUT HAS NO CHEST PAIN OR SOB. OTHERWISE VS ARE WNL AND IS ON RA. HE DENIES PAIN AT THIS TIME BUT IS AWARE OF PRN PAIN MEDICATIONS. RIGHT HIP HAS THE PRIMEO DRESSING THAT IS C/D/I. DENIES NUMBNESS AND TINGLING. CAN MOVE FINGERS AND TOES WHEN ASKED. PEDAL PULSES ARE STRONG. HE IS WT BEARING TOLERATED. IV FLUIDS RUNNING AND TXA JUST GIVEN. HE IS LAYING IN BED WITH CALL LIGHT IN REACH.
--- NOTE | 2022-02-01 21:05 | NUR ---
PT HAS HAD HTN POSTOP.DIASTOLIC 99-104. HEART RATE AND RHYTHMN PER TELE 88 SINUS. I RECHECKED BP AND NOTED 116/86. PT VERB HE HAS BEEN ADVISED HE HAS HAD HTN IN PAST, BUT ACKNOWLEDGES THAT HE DOES NOT OFTEN SEE DOCTORS AND HAS NOT FOLLOWED UP ON THIS.PT TAKES NO MEDS FOR THIS.I SPOKE WITH DR EUGENE AND ADVISED OF THIS AND DISCUSSED THAT PT HAS HAS PREOP ORDER FOR PRN TRANDATE THAT HAS NOT BEEN DCD AND DR EUGENE OKD TO USE THIS ORDER NEEDED.
--- NOTE | 2022-02-02 03:33 | NUR ---
PT WITH 1 SMALL UNMEASURED RUINE WHICH APPEARED SPILLED ON BED LINEN AND 100ML MEASURED WHEN OOB WITH STAFF ASSIST FOR BRP WITH GAITBELT AND WALKER.PT UNABLE TO VOID FURTHER AND UNCOMFORTABLE.BLADDER SCAN [address] BUITRAGO X2 AND RECIEVED ORDER FOR STRAIGHT CATH X1.
[2022-02-02 04:28] LABS: Hematocrit 39.6 % (37.0-53.0); Hemoglobin 13.1 g/dL (13.5-17.5); Mean Corpuscular HGB 28.7 pg (26.0-34.0); Mean Corpuscular HGB Conc 33.1 g/dL (31.5-36.5); Mean Corpuscular Volume 87 fL (80-100); Mean Platelet Volume 8.8 fL (9.1-12.4); Platelet Count 588 K/mm3 (150-400); RDW Coefficient Variation 13.3 % (11.7-14.2); RDW Standard Deviation 42.1 fL (35.1-46.3); Red Blood Cell Count 4.56 M/mm3 (4.30-5.90); White Blood Cell Count 17.45 K/mm3 (4.00-11.30)
[2022-02-02 04:56] LABS: Alanine Aminotransfer (ALT/SGP 16 U/L (12-78); Albumin, Blood 3.1 g/dL (3.4-5.0); Albumin/Globulin Ratio 0.9 (0.8-1.8); Alk Phos 62 U/L (50-136); Anion Gap 6 mmol/L (6-16); Aspartate Aminotrans (AST/SGOT 17 U/L (12-37); Bilirubin, Total 0.4 mg/dL (0.1-1.0); Blood Urea Nitrogen 22 mg/dL (8-24); Bun/Creatinine Ratio 26.6 (12.0-20.0); CO2, Blood 30 mmol/L (21-32); Calcium, Blood 8.9 mg/dL (8.5-10.1); Chloride, Blood 99 mmol/L (98-108); Creatinine, Blood 0.83 mg/dL (0.60-1.20); Globulin, Blood 3.6 g/dL (2.2-4.0); Glomerular Filtration Rate >60 (60-); Glucose, Blood 137 mg/dL (70-99); Potassium, Blood 4.1 mmol/L (3.5-5.5); Sodium, Blood 135 mmol/L (136-145); Total Protein, Blood 6.7 g/dL (6.4-8.2)
[2022-02-02 05:00] LABS: Source, Urine Foley catheter
[2022-02-02 05:05] LABS: Bilirubin, Urine Neg (Neg); Blood, Urine Neg (Neg); Glucose Qualitative, Urine 1+ (Neg); Ketones, Urine Neg (Neg); Leukocyte Esterase, Urine Neg (Neg); Nitrite, Urine Neg (Neg); Protein, Urine Neg (Neg); Specific Gravity, Urine 1.015 (1.003-1.022); Urobilinogen, Urine NORM (Normal); pH, Urine 6.5 (5.0-8.0)
[2022-02-02 05:45] LABS: Appearance, Urine Clear (Clear); Color, Urine Yellow (P-Yellow)
--- NOTE | 2022-02-02 06:37 | NUR ---
SUMMARY NO FURTHER CHANGES. PT VERB HIP PAIN BETTER THAN IT HAS BEEN IN WEEKS. BARBOSA PATENT.PT TOLERATING PO.U/A COMPLETE AND SHOWS GLUCOSE 1+.ALTHOUGH PT DENIES DIABETES AND BLOOD GLUCOSE HAVE BEEN BETWEEN 100-134.I WILL ADVISE DAY RN AND ASK FOR FOLLOW UP WITH DR LIMA.
--- NOTE | 2022-02-02 16:21 | NUR ---
DISCUSSED BARBOSA CATH WITH DR. BAE; PLAN TO LEAVE CATHETER IN PLACE UNTIL TOMORROW SINCE FLOMAX WAS STARTED TODAY. ALSO NOTIFIED DR. BAE OF +1 GLUCOSE IN PT'S URINE SAMPLE. PT UPDATED OF PLAN. WILL CONTINUE TO MONITOR.
--- NOTE | 2022-02-02 17:00 | NUR ---
SHIFT SUMMARY PT IS POD#1 FROM A R GIANLUCA HIP WITH DR. FOSTER. PAIN MANAGED WITH OXYCODONE. PT IS A 1 ASSIST WITH GAIT BELT AND WALKER. BARBOSA CATH REMAINS IN PLACE R/T URINARY RETENTION, PT STARTED ON FLOMAX TODAY. PT IS A 1 ASSIST WITH GAIT BELT AND WALKER. POSSIBLE DISCHARGE HOME TOMORROW. WILL MONITOR UNTIL REPORT TO BRETT ORDAZ.
--- NOTE | 2022-02-03 04:53 | NUR ---
SHIFT SUMMARY NO ACUTE CHANGES TO REPORT THIS SHIFT. PT REPORTS PAIN X1 THIS SHIFT, MEDICATED WITH EFFECT. DERMABOND DRESSING INTACT TO RIGHT HIP C/D WITHOUT S/S OF INFECTION. BARBOSA REMAINS IN PLACE FOR RETENTION, ADEQUATE OUTPUT. VITALS STABLE. DISCHARGE TODAY. BED IN LOWEST POSITION, CALL LIGHT WITHIN REACH.
[2022-02-03 05:03] LABS: Hematocrit 38.1 % (37.0-53.0); Hemoglobin 12.6 g/dL (13.5-17.5); Mean Corpuscular HGB Conc 33.1 g/dL (31.5-36.5); Mean Corpuscular Volume 88 fL (80-100); Mean Platelet Volume 8.8 fL (9.1-12.4); Platelet Count 517 K/mm3 (150-400); RDW Coefficient Variation 13.4 % (11.7-14.2); RDW Standard Deviation 43.7 fL (35.1-46.3); Red Blood Cell Count 4.34 M/mm3 (4.30-5.90); White Blood Cell Count 11.15 K/mm3 (4.00-11.30)
[2022-02-03 05:34] LABS: Anion Gap 3 mmol/L (6-16); Blood Urea Nitrogen 14 mg/dL (8-24); Bun/Creatinine Ratio 21.2 (12.0-20.0); CO2, Blood 32 mmol/L (21-32); Calcium, Blood 8.7 mg/dL (8.5-10.1); Chloride, Blood 104 mmol/L (98-108); Creatinine, Blood 0.66 mg/dL (0.60-1.20); Glomerular Filtration Rate >60 (60-); Glucose, Blood 112 mg/dL (70-99); Potassium, Blood 4.1 mmol/L (3.5-5.5); Sodium, Blood 139 mmol/L (136-145)
[2022-02-03] MEDS ORDERED: TAMS.4ER PO (12:53)
--- NOTE | 2022-02-03 14:30 | NUR ---
SHIFT SUMMARY PT A&OX4, VSS/RA, AMB SBA FWW/GB, UP TO CHAIR T/O SHIFT, VOIDING, DENIES PAIN, REMI PO. DC INSTRUCTIONS PROVIDED. PT REP UNDERSTANDING INSTRUCTIONS INCLUDING FU APPT WITH PCP 1-2 WKS, AND DR FOSTER 2 WKS. IV DC'D. LEFT FLOOR VIA WC WITH SUPERVISOR BOTTLE MACHINES, TO GO HOME WITH NEICE, WITH ALL PERSONAL POSSESSIONS INCLUDING DC PACKET.
== END 2022-02-03 14:45 | disposition home or self-care (01) | DRG 522 ==
LOC: ER 17:50 → SURS 23:02
PROVIDERS: Family Medicine; Internal Medicine; Orthopaedic Surgery; Student in an Organized Health Care Education/Training Program; ADMIT Internal Medicine
PROC: 0SRR0JA Replacement of Right Hip Joint, Femoral Surface with Synthetic Substitute, Uncemented, Open Approach (ICD-10-PCS; principal; 2022-02-01 16:00)
DX: S72.001A Fracture of unspecified part of neck of right femur, initial encounter for closed fracture (principal); Z20.822 Contact with and (suspected) exposure to COVID-19; B18.2 Chronic viral hepatitis C; F15.10 Other stimulant abuse, uncomplicated; R33.9 Retention of urine, unspecified; Z28.21 Immunization not carried out because of patient refusal; F32.A Depression, unspecified; F17.200 Nicotine dependence, unspecified, uncomplicated; Z98.890 Other specified postprocedural states; Z71.6 Tobacco abuse counseling; W18.30XA Fall on same level, unspecified, initial encounter
CPT/HCPCS: 0241U; 36415; 72170; 80048; 80053; 81003; 83735; 84100; 85025; 85027; 93005; 93010; 97110; 97161; 99284-25; A9270; C1776; J0171; J0690; J0735; J1100; J1885; J2250; J2270; J2370; J2405; J2704; J2795; J3010; J7030; J7120

== ENCOUNTER → 2024-04-08 | Outpatient (CLI) | payer OTHER ==
[~2024-04-08] MED LIST changes: +IBUP800 PO; +PROM25 PO; +TAMS.4ER PO
[2024-04-08 19:45] LABS: BASOPHILS ABSOLUTE AUTO 0.05 K/mm3 (0.00-0.23); BASOPHILS PERCENT AUTO 1 % (0-2); EOSINOPHILS ABSOLUTE AUTO 0.16 K/mm3 (0.00-0.68); EOSINOPHILS PERCENT AUTO 2 % (0-6); Hematocrit 42.4 % (37.0-53.0); Hemoglobin 14.1 g/dL (13.5-17.5); IMMATURE GRAN ABSOLUTE AUTO 0.05 K/mm3 (0.00-0.10); IMMATURE GRAN PERCENT AUTO 1 % (0-1); LYMPHOCYTES ABSOLUTE AUTO 2.17 K/mm3 (0.84-5.20); LYMPHOCYTES PERCENT AUTO 22 % (21-46); MONOCYTES ABSOLUTE AUTO 0.79 K/mm3 (0.16-1.47); MONOCYTES PERCENT AUTO 8 % (4-13); Mean Corpuscular HGB 28.7 pg (26.0-34.0); Mean Corpuscular HGB Conc 33.3 g/dL (31.5-36.5); Mean Corpuscular Volume 86 fL (80-100); Mean Platelet Volume 9.4 fL (9.1-12.4); NEUTROPHILS ABSOLUTE AUTO 6.56 K/mm3 (1.96-9.15); NEUTROPHILS PERCENT AUTO 67 % (41-73); Platelet Count 529 K/mm3 (150-400); RDW Coefficient Variation 13.2 % (11.7-14.2); RDW Standard Deviation 41.1 fL (35.1-46.3); Red Blood Cell Count 4.92 M/mm3 (4.30-5.90); White Blood Cell Count 9.78 K/mm3 (4.00-11.30)
[2024-04-08 19:51] LABS: Alanine Aminotransfer (ALT/SGP 39 U/L (12-78); Albumin, Blood 3.6 g/dL (3.4-5.0); Albumin/Globulin Ratio 1.1 (0.8-1.8); Alk Phos 51 U/L (50-136); Anion Gap 11 mmol/L (3-11); Aspartate Aminotrans (AST/SGOT 27 U/L (12-37); Bilirubin, Total 0.6 mg/dL (0.1-1.0); Blood Urea Nitrogen 23 mg/dL (8-24); Bun/Creatinine Ratio 28.1 (12.0-20.0); CHOL/HDL RATIO 1.9; CO2, Blood 29 mmol/L (21-32); Calcium, Blood 9.2 mg/dL (8.5-10.1); Chloride, Blood 93 mmol/L (98-108); Cholesterol 183 mg/dL (50-200); Creatinine, Blood 0.82 mg/dL (0.60-1.20); Globulin, Blood 3.2 g/dL (2.2-4.0); Glomerular Filtration Rate 97 (60-); Glucose, Blood 100 mg/dL (70-99); HDL Cholesterol 94 mg/dL (>39); LDL/HDL RATIO 0.9; Low Density Lipoprotein Chol 81 mg/dL (0-110); Potassium, Blood 4.8 mmol/L (3.5-5.5); Sodium, Blood 128 mmol/L (136-145); Total Protein, Blood 6.8 g/dL (6.4-8.2); Triglycerides 42 mg/dL (30-160); Very Low Density Lipoprot Chol 8 mg/dL (6-32)
== END ==
LOC: LAB SHORT 18:20 → LAB 18:20
PROVIDERS: Nurse Practitioner Family
DX: I10 Essential (primary) hypertension (principal); E55.9 Vitamin D deficiency, unspecified; Z12.5 Encounter for screening for malignant neoplasm of prostate
CPT/HCPCS: 80053; 80061; 82306; 84443; 85025; G0103